=== PATIENT | male | born 1945 | race Caucasian/White ===

== ENCOUNTER 2020-06-03 11:13 | Inpatient (IN) | payer MEDICARE, OTHER, SELFPAY ==
[2020-06-03] VITALS (12 sets, daily range): BP systolic 83–152; BP diastolic 62–96; PULSE 72–95; RESP 14–23; TEMP 36.4–36.6; O2SAT 93–98
--- NOTE | 2020-06-03 11:24 | XRR_ITS ---
PROCEDURE INFORMATION: Exam: XR Chest, 1 View Exam date and time: 06/03/2020 11:40 AM Age: 75 years old Clinical indication: Syncope TECHNIQUE: Imaging protocol: XR of the chest Views: 1 view. COMPARISON: CR Chest 2 views* [id number] 03/24/2018 3:13 PM FINDINGS: Lungs: No lung consolidation or pulmonary edema. Pleural space: No pleural effusion or pneumothorax. Heart/Mediastinum: The cardiac silhouette is not enlarged. The mediastinal contours are normal. Bones/joints: Prior right rotator cuff surgery with a humeral anchor present. Soft tissues: There is a left epicardial fat pad. XR/XR chest 1V portable [id number] IMPRESSION: No acute abnormality.
--- NOTE | 2020-06-03 11:25 | ECG_ITS ---
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 Measurements Intervals [place] Rate: 80 P: 26 MI: 188 QRS: -36 QRSD: 153 T: 20 QT: 418 QTc: 485 Interpretive Statements SINUS RHYTHM RIGHT BUNDLE BRANCH BLOCK [120+ ms QRS DURATION, UPRIGHT V1, 40+ ms S IN I/aVL/V4/V5/V6] INFERIOR MYOCARDIAL INFARCTION , PROBABLY OLD [40+ ms Q WAVE AND/OR ST/T ABNORMALITY IN II/aVF] No previous ECG available for comparison Electronically Signed On 06-03-2020 16:06:00 CDT by Todd Campos M.D. [id number]
--- NOTE | 2020-06-03 11:53 | CT_ITS ---
WS: [id number] CT ABDOMEN PELVIS TECHNIQUE: Contrast-enhanced CT of the abdomen and pelvis with coronal and sagittal reformatted image s. CLINICAL INFORMATION: Abdominal pain COMPARISON: CT 6 25,009 DLP: 1378.[address] scans at [facility] use at least one of these dose optimization techniques: automat ed exposure control; mA and/or kV adjustment per patient size (includes targeted exams where dose is matched to clinical indication); or iterative reconstruction. FINDINGS: Mild diffuse fatty infiltration of the liver. Portal vein and splenic vein are patent. Normal gallbla dder. Normal GE junction. Fatty atrophy of the pancreas. Lung bases are well aerated. Adrenal Glands are normal. Normal renal parenchymal enhancement. No hydronephrosis. Portal vein and s plenic vein are patent. Calcified slightly enlarged prostate measuring 5.1 CM with prominent seminal vesicles. Recommend andrea elation PSA. Incidental fat-containing left inguinal hernia. Postoperative changes in the sigmoid col on and descending colon. Extensive Diverticulosis. No evidence of acute diverticulitis. Appendix is n ormal. Moderate degenerative arthritis lumbar spine with endplate degenerative changes. Notified Salud Lee at 06/03/2020 1:[address]/CT abdomen pelvis w con* [id number] IMPRESSION: 1. Prior postoperative changes descending colon and sigmoid colon. Diverticulo sis. 2. No evidence of acute diverticulitis. 3. Bilateral renal cortical atrophy. No hydronephrosis. 4. Incidental fat-containing left inguinal hernia. 5. Prominent prostate measuring 5.1 CM. Recommend correlation PSA. 6. No other significant findings.
[2020-06-03 12:16] LABS: Basophils # 0.1 10^3/uL (0.0-0.1); Basophils % 0.6 %; Eosinophils # 0.2 10^3/uL (0.0-0.8); Eosinophils % 2.5 %; Hematocrit 37.4 % (42.0-52.0); Hemoglobin 12.1 g/dL (11.7-16.6); Lymphocytes # 0.9 10^3/uL (0.8-4.8); Lymphocytes % 9.7 %; Mean Corpuscular HGB Conc 32.4 g/dL (30.0-36.0); Mean Corpuscular Hemoglobin 29.5 pg (28.0-34.0); Mean Corpuscular Volume 91.2 fL (80-94); Mean Platelet Volume 9.7 fL (7.4-10.4); Monocytes # 0.4 10^3/uL (0.2-0.9); Monocytes % 4.4 %; Neutrophils % 82.5 %; Nucleated Red Blood Cells % 0 %; Platelet Count 247 10^3/cmm (130-400); Red Cell Distribution Width 12.8 % (12.1-15.1); White Blood Count 8.7 10^3/uL (4.0-10.0)
[2020-06-03] MEDS: sodium chloride 0.9% 1,000 ML 100 ML IV (12:20)
[2020-06-03] MEDS: pantoprazole 40 mg SDV 80 MG IVP (12:20)
[2020-06-03 12:28] LABS: INR 0.97 (0.8-1.2); Partial Thromboplastin Time 25.4 SECONDS (23.9-36.7)
[2020-06-03 12:36] LABS: Alanine Aminotransferase 20 U/L (0-41); Albumin Level 4.6 g/dL (3.5-5.2); Alkaline Phosphatase 94 IU/L (40-130); Anion Gap 18.3 (5-19); Aspartate Amino Transferase 19 U/L (0-40); Blood Urea Nitrogen 27 mg/dL (8-23); Calcium 9.8 mg/dL (8.5-10.5); Carbon Dioxide 25 mmol/L (22-29); Chloride 96 mmol/L (98-107); Globulin 2.8 g/dL (1.3-4.6); Glucose 223 mg/dL (65-115); Magnesium 1.5 mg/dL (1.7-2.3); Osmolality Calculated 284 mOsm/kg (285-295); Potassium 4.3 mmol/L (3.5-5.1); Sodium 135 mmol/L (136-145); Total Bilirubin 0.4 mg/dL (0.15-1.2); Total Protein 7.4 g/dL (6.6-8.7)
[2020-06-03 12:38] LABS: Troponin(5th) Baseline 17 ng/L (0-15)
[2020-06-03] MEDS: iodixanol 320 mg/mL 100mL Btl IV (13:01)
--- NOTE | 2020-06-03 13:16 | ED_ITS ---
HPI - Syncope General: Chief Complaint: Syncope Stated Complaint: SYNCOPE/ BLOOD IN STOOL Time Seen by Provider: 06/03/20 11:24 Source: patient Mode of arrival: ambulatory Limitations: no limitations History of Present Illness: HPI narrative: Dhiraj is a 75-year-old male who comes in after a syncopal spell at home. Patient states he was on the commode having a bowel movement and felt a strange sensation and noticed blood in the toilet. He then had a syncopal spell after he felt lightheaded and dizzy. He denied any preceding chest pain or shortness of breath. He denies any abdominal pain at any time. He denies denies any hematic emesis or melena. The blood was bright red in nature. Patient denies any fevers or chills. Patient states he has had syncopal spells in the past but never associated with blood in his stool. Currently he feels somewhat lightheaded and dizzy but otherwise denies any complaints. Patient denies being on any blood thinners other than aspirin. Associated symptoms: Deny abdominal pain, chest pain, fever(s), headache(s), lightheadedness, nausea or vertigo Review of Systems Const: Denies: fever(s), chills, body aches, fatigue, malaise or diaphoresis Eyes: Denies: change in vision, blurry vision, blind spots, photophobia, eye discharge or eye redness ENMT: Denies: throat pain, odynophagia, hoarseness, swelling of lips/tongue, oral sores, ear or mastoid pain, ear discharge, change in hearing or nasal discharge Card: Reports: syncope; Denies: chest pain, palpitations, irregular heart rhythm, edema, lightheadedness, pre-syncope, dyspnea on exertion or orthopnea Resp: Denies: dyspnea, productive cough, non-productive cough, wheezing, hemoptysis or chest congestion GI: Reports: hematochezia; Denies: abdominal pain, nausea, vomiting, hematemesis, coffee ground emesis, heartburn, diarrhea, constipation, GI cramping or melena : Denies: flank pain, dysuria, urinary frequency, urinary urgency or hematuria Musc: Denies: neck pain, back pain, extremity pain, extremity swelling, joint pain, joint swelling, joint redness, joint warmth or joint stiffness Skin/Breast: Denies: rash, pruritus, erythema, skin tenderness or jaundice Neuro: Denies: headache(s), numbness in extremities, weakness in extremities, sensory changes, lack of coordination, difficulty walking, dizziness, vertigo, confusion, Slurred speech present or seizure-like activity Dedrick/Lymph: Denies: easy bruising, easy bleeding, petechiae, purpura or enlarged lymph nodes All/Imm: Denies: urticaria, throat swelling, tongue swelling, facial swelling or acute wheezing PFSH ED PFSH: Medical History Anemia, deficiency CA of prostate follows with Dr Brown Cancer of colon Chronic kidney disease, stage 2 (mild) Depression Dyslipidemia Fatty tumor Gastro-esophageal reflux disease without esophagitis History of esophageal dilatation Lung nodule right Type 2 diabetes mellitus without complications Surgical History History of colon resection (~1993) History of repair of right rotator cuff Hx of hernia repair Hx of removal of neck cyst Family History Father Diabetes CAD (coronary artery disease) Hypertension Social History Smoking and tobacco status: never smoked Alcohol intake: never Lives independently: Yes Household members: spouse Marital status: Number of children: 2 Number of grandchildren: 3 Current occupational status: retired Current gender identity: Male Physical Exam Const: COMMON NORMALS: no acute distress, patient oriented x3, no limitations, healthy appearing and well nourished GENERAL APPEARANCE: cooperative, well kempt and well developed HENMT: COMMON NORMALS: normocephalic, atraumatic, external ears normal, EAC's normal and Normal external nose present HEAD & SCALP: normal to inspection, normocephalic and atraumatic FACE & SINUS: normal facial exam and face symmetric NOSE: Normal external nose present and Normal nares present EXTERNAL EAR: Yes external ears normal EXTERNAL AUDITORY CANAL: EAC's normal MOUTH: Normal oral and palatal mucosa present, lip normal and tongue normal Eye: COMMON NORMALS: Equal, round and reactive pupils present and conjunctivae normal GENERAL EYE: appearance normal, both eyes and all related structures ALIGNMENT: Yes alignment normal PERIORBITAL: periorbital findings normal EYELID: eyelids normal CONJUNCTIVA: Yes conjunctivae normal SCLERA: sclerae normal PUPIL: Yes Equal, round and reactive pupils present Neck/C-Spine: COMMON NORMALS: full ROM, no lymphadenopathy, supple, no meningeal signs and no JVD GENERAL: Yes normal visual inspection and Yes trachea midline Chest: COMMONS NORMALS: normal inspection of the chest and normal palpation of entire chest wall Resp: COMMON NORMALS: normal respiratory effort, No retractions and No use of accessory muscles EFFORT & INSPECTION: Yes able to speak in complete sentences and Yes symmetric chest movement AUSCULTATION: no crackles, no rales, no rhonchi and no wheezes Cardio: COMMON NORMALS: no JVD, regular rate, regular rhythm, S1 normal heart sound present and S2 normal heart sound present RATE: regular rate RHYTHM: regular rhythm HEART SOUNDS: S1 normal heart sound present, S2 normal heart sound present, no click, no gallops, no murmurs, no rubs and abnormal split S2 GI: COMMON NORMALS: Soft to palpation and No hepatosplenomegaly present PALPATION: Yes Soft to palpation, No Tenderness to palpation present (GI), No Guarding due to palpation present (GI), No Rigid due to palpation, Yes No hepato splenomegaly present, No Hernia present, No Palpable mass present and No Pulsatile mass present : COMMON NORMALS: Yes no CVA tenderness BLADDER/KIDNEY EXAM: Yes no CVA tenderness Back/Pelvis: COMMON NORMALS: no CVA tenderness, thoracic and lumbar spine normal to inspection, no thoracic nor lumbar tenderness and thoraco-lumbar ROM normal Extremity: COMMON NORMALS: normal to inspection, full ROM, capillary refill normal, no joint enlargement, no clubbing, cyanosis or edema and no calf t enderness Neuro: COMMON NORMALS: patient oriented x3, CN's II-XII intact bilaterally, moves all extremities, no focal motor deficits and no sensory deficits noted MENINGEAL SIGNS: Yes no meningeal signs SPEECH: speech normal Psych: COMMON NORMALS: mental status grossly normal, Normal thought process present, cooperative, normal affect, speech normal and activity/motor behavior normal APPEARANCE: Yes well kempt SPEECH: Yes normal speech THOUGHT PROCESS: Normal thought process present Skin: COMMON NORMALS: no rashes or lesions noted, turgor normal, no jaundice, no petechiae and no mottling GENERAL SKIN EXAM: no rashes or lesions noted and turgor normal Course ED course: Orthostatic vital signs -positive for dropping of systolic blood pressure in standing position. Vital Signs: Vital signs: Vital Signs Temperature 97.7 F 06/03/20 11:18 Pulse Rate 83 06/03/20 12:04 Respiratory Rate 16 06/03/20 12:04 Blood Pressure 114/80 06/03/20 12:04 Pulse Oximetry 95 06/03/20 12:04 MDM - Syncope MDM Narrative: Medical decision making narrative: Patient comes in with a large amount of bright red blood per rectum. He had a syncopal spell with this as well. I reviewed the case in full with Dr. Valerio he is agreeable to admission. Right now the patient's vital signs are stable but he is orthostatic. We will make certain he has 2 large-bore IVs and get him admitted to the ICU. Lab Data: Attestation: I reviewed the patient's lab results. Labs: Lab Results 06/03/20 06/03/20 06/03/20 Range/Units 11:59 11:59 11:59 WBC 8.7 (4.0-10.0) 10^3/ uL RBC 4.10 (4.1-5.3) 10^6/u L Hgb 12.1 (11.7-16.6) g/dL Hct 37.4 L (42.0-52.0) % MCV 91.2 (80-94) fL MCH 29.5 (28.0-34.0) pg MCHC 32.4 (30.0-36.0) g/dL RDW 12.8 (12.1-15.1) % Plt Count 247 (130-400) 10^3/c mm MPV 9.7 (7.4-10.4) fL Neut % (Auto) 82.5 % Lymph % (Auto) 9.7 % Josephine % (Auto) 4.4 % Eos % (Auto) 2.5 % Baso % (Auto) 0.6 % Neut # (Auto) 7.20 (1.8-7.7) 10^3/u L Lymph # (Auto) 0.9 (0.8-4.8) 10^3/u L Josephine # (Auto) 0.4 (0.2-0.9) 10^3/u L Eos # (Auto) 0.2 (0.0-0.8) 10^3/u L Baso # (Auto) 0.1 (0.0-0.1) 10^3/u L Nucleated RBC % (a uto) 0 % Nucleated RBCs # 0.0 /100WBC PT (10.5-13.3) SECO NDS INR (0.8-1.2) APTT (23.9-36.7) SECO NDS Sodium 135 L (136-145) mmol/L Potassium 4.3 (3.5-5.1) mmol/L Chloride 96 L (98-107) mmol/L Carbon Dioxide 25 (22-29) mmol/L Anion Gap 18.3 (5-19) BUN 27 H (8-23) mg/dL Creatinine 1.4 H (0.7-1.2) mg/dL GFR Calculation Not Reportable Glucose 223 H (65-115) mg/dL Calculated Osmolal ity 284 L (285-295) mOsm/k g Calcium 9.8 (8.5-10.5) mg/dL Magnesium 1.5 L (1.7-2.3) mg/dL Total Bilirubin 0.4 (0.15-1.2) mg/dL AST 19 (0-40) U/L ALT 20 (0-41) U/L Alkaline Phosphata se 94 (40-130) IU/L Troponin T Baselin e 17 H (0-15) ng/L Total Protein 7.4 (6.6-8.7) g/dL Albumin 4.6 (3.5-5.2) g/dL Globulin 2.8 (1.3-4.6) g/dL Blood Type Rho(D) Type Antibody Screen Crossmatch 06/03/20 06/03/20 Range/Units 11:59 11:59 WBC (4.0-10.0) 10^3/ uL RBC (4.1-5.3) 10^6/u L Hgb (11.7-16.6) g/dL Hct (42.0-52.0) % MCV (80-94) fL MCH (28.0-34.0) pg MCHC (30.0-36.0) g/dL RDW (12.1-15.1) % Plt Count (130-400) 10^3/c mm MPV (7.4-10.4) fL Neut % (Auto) % Lymph % (Auto) % Josephine % (Auto) % Eos % (Auto) % Baso % (Auto) % Neut # (Auto) (1.8-7.7) 10^3/u L Lymph # (Auto) (0.8-4.8) 10^3/u L Josephine # (Auto) (0.2-0.9) 10^3/u L Eos # (Auto) (0.0-0.8) 10^3/u L Baso # (Auto) (0.0-0.1) 10^3/u L Nucleated RBC % (a uto) % Nucleated RBCs # /100WBC PT 13.10 (10.5-13.3) SECO NDS INR 0.97 (0.8-1.2) APTT 25.4 (23.9-36.7) SECO NDS Sodium (136-145) mmol/L Potassium (3.5-5.1) mmol/L Chloride (98-107) mmol/L Carbon Dioxide (22-29) mmol/L Anion Gap (5-19) BUN (8-23) mg/dL Creatinine (0.7-1.2) mg/dL GFR Calculation Glucose (65-115) mg/dL Calculated Osmolal ity (285-295) mOsm/k g Calcium (8.5-10.5) mg/dL Magnesium (1.7-2.3) mg/dL Total Bilirubin (0.15-1.2) mg/dL AST (0-40) U/L ALT (0-41) U/L Alkaline Phosphata se (40-130) IU/L Troponin T Baselin e (0-15) ng/L Total Protein (6.6-8.7) g/dL Albumin (3.5-5.2) g/dL Globulin (1.3-4.6) g/dL Blood Type B Positive Rho(D) Type Positive Antibody Screen Negative Crossmatch See Detail Imaging Data^: CXR: My impression: No acute cardiopulmonary findings. EKG Data^: EKG 1: Attestation: I personally reviewed and interpreted this EKG as follows: EKG interpretation date: 06/03/20 EKG interpretation time: 11:43 Interpretation: Normal sinus rhythm at 80 beats a minute, right bundle branch block, no acute ST-T wave changes. Q waves inferiorly. EKG 2: Attestation: I personally reviewed and interpreted this EKG as follows: EKG interpretation date: 06/03/20 EKG interpretation time: 13:33 Interpretation: Normal sinus rhythm at 84 beats a minute, right bundle branch block, Q waves inferiorly. Discharge Plan Discharge Patient Disposition: Admitted As Inpatient Clinical Impression: Acute GI bleeding Condition: Stable Prescriptions: No Action hydrochlorothiazide 25 mg tablet 25 mg PO DAILY RF: 0 tamsulosin 0.4 mg capsule 0.4 mg PO DAILY RF: 0 cetirizine [Zyrtec] 10 mg tablet 10 mg PO DAILY RF: 0 glipizide 5 mg tablet 5 mg PO BID RF: 0 potassium chloride 20 mEq tablet extended release 20 meq PO BID RF: 0 metformin 500 mg tablet 1,000 mg PO BID RF: 0 paroxetine HCl 20 mg tablet 20 mg PO BID RF: 0 atorvastatin [Lipitor] 80 mg tablet 80 mg PO EVERY OTHER DAY RF: 0 clonidine HCl 0.1 mg tablet 0.1 mg PO BID PRN (Reason: Blood Pressure) RF: 0 Victoza 2-Rigo 0.6 mg/0.1 mL (18 mg/3 mL) pen injector 0.6 mg SUBCUT DAILY RF: 0 pantoprazole [Protonix] 40 mg tablet,delayed release (DR/EC) 40 mg PO DAILY RF: 0 omega-3 fatty acids 1,000 mg capsule 2,000 mg PO BID RF: 0 aspirin 325 mg tablet 325 mg PO DAILY RF: 0 cholecalciferol (vitamin D3) 1,000 unit capsule 1,000 unit PO DAILY RF: 0 carvedilol 12.5 mg tablet 6.25 mg PO BID RF: 0 losartan 100 mg tablet 150 mg PO DIRECTED Qty: 135 RF: 3 cyclobenzaprine 10 mg Tablet 10 mg PO TID PRN (Reason: Muscle Pain) RF: 0 Referrals: Mary Samson APN [Primary Care Provider] - Coding Level of Care Code ED Retail Zone Specialist for Chg Fwd Exam Comprehensive
--- NOTE | 2020-06-03 13:25 | ECG_ITS ---
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 Measurements Intervals [place] Rate: 84 P: -3 FL: 168 QRS: -37 QRSD: 153 T: 1 QT: 419 QTc: 496 Interpretive Statements SINUS RHYTHM WITH OCCASIONAL VENTRICULAR PREMATURE COMPLEXES RIGHT BUNDLE BRANCH BLOCK [120+ ms QRS DURATION, UPRIGHT V1, 40+ ms S IN I/aVL/V4/V5/V6] INFERIOR MYOCARDIAL INFARCTION , PROBABLY OLD [40+ ms Q WAVE AND/OR ST/T ABNORMALITY IN II/aVF] Compared to ECG 06/03/2020 11:43:33 Ventricular premature complex(es) now present Myocardial infarct finding still present Electronically Signed On 06-03-2020 16:19:52 CDT by Todd Campos M.D. [id number]
[2020-06-03] MEDS: magnesium sulfate premix 2 GM/50 ML PIGGYBACK IV (13:43)
[2020-06-03 14:25] LABS: Troponin 5 2HR 14.19 ng/L (0-15)
--- NOTE | 2020-06-03 14:26 | PC.NURSE ---
report given to mita thorne rn in icu.
--- NOTE | 2020-06-03 14:29 | P.CONIM_ITS ---
Providers/Reason For Consult Consulting Physican/Specialty*: General Surgery Mohan Lucero MD Reason for Consult*: Hematochezia with syncope. Attending Physician: Boom Deluca MD Primary Care Provider: Mary Samson APN History of Present Illness History of Present Illness Dhiraj Pathak is a 75 year old male admitted today for an episode of hematochezia year associated with syncope earlier today. The patient says that he actually had some loose stool overnight that had a little bit of bright red blood in it, and both of these things are unusual for him. He then sat down to have a bowel movement around 9:30 AM and passed a significant amount of bright red blood and this was associated with a syncopal episode. He denies any history of GI bleeding. He has no known history of peptic ulcer disease. He has not been having any abdominal pain or cramping. He had a colonoscopy in [place], [place] 2 years ago and says only some small polyps were removed; he was told to consider another colonoscopy in 5 years. He is known to have diverticulosis. The patient takes a full size aspirin a day but does not take any other NSAIDs on a regular basis. He is not on any formal anticoagulation otherwise. Review of Systems General: Reports: 10 or more systems reviewed and unremarkable except in HPI and below Const: Denies: fever(s) GI: Reports: hematochezia; Denies: abdominal pain or melena Meds/Allergies Home Medications and Allergies Home Medications Medication Instructions Recorded Confirmed Last Taken Type aspirin 325 mg tablet 325 mg PO DAILY tab 11/03/19 06/03/20 06/02/20 History atorvastatin 80 mg tablet 80 mg PO EVERY OTHER DAY tab 11/03/19 06/03/20 06/02/20 History cholecalciferol (vitamin D3) 25 1,000 unit PO DAILY 11/03/19 06/03/20 06/02/20 History mcg (1,000 unit) capsule clonidine HCl 0.1 mg tablet 0.1 mg PO BID PRN 11/03/19 06/03/20 Unknown History glipizide 5 mg tablet 5 mg PO BID 11/03/19 06/03/20 06/02/20 History liraglutide 0.6 mg/0.1 mL (18 mg/3 0.6 mg SUBCUT DAILY 11/03/19 06/03/20 06/02/20 History mL) subcutaneous pen injector metformin 500 mg tablet 1,000 mg PO BID tab 11/03/19 06/03/20 06/02/20 History omega-3 fatty acids 1,000 mg 2,000 mg PO BID cap 11/03/19 06/03/20 06/02/20 History capsule pantoprazole 40 mg tablet,delayed 40 mg PO DAILY 11/03/19 06/03/20 06/02/20 History release paroxetine HCl 20 mg tablet 20 mg PO BID tab 11/03/19 06/03/20 06/02/20 History potassium chloride 20 mEq 20 meq PO BID 11/03/19 06/03/20 06/02/20 History tablet,extended release carvedilol 12.5 mg tablet 6.25 mg PO BID tab 03/29/20 06/03/20 06/02/20 History cetirizine 10 mg tablet 10 mg PO DAILY tab 03/29/20 06/03/20 06/02/20 History hydrochlorothiazide 25 mg tablet 25 mg PO DAILY 03/29/20 06/03/20 06/02/20 History tamsulosin 0.4 mg capsule 0.4 mg PO DAILY 03/29/20 06/03/20 06/02/20 History losartan 100 mg tablet 150 mg PO DIRECTED #135 tab 05/13/20 06/03/20 06/02/20 Rx cyclobenzaprine 10 mg PO TID PRN 06/03/20 06/03/20 Unknown History Allergies Allergy/AdvReac Type Severity Reaction Status Date / Time oxycodone [From OxyContin] AdvReac itching Verified 06/03/20 14:37 Current Medications Current Medications Generic Name Dose Route Start Last Admin Trade Name Freq PRN Reason Stop Dose Admin Sodium Chloride 1,000 mls @ 100 mls/hr 06/03/20 11:30 06/03/20 12:20 Sodium Chloride 0.9% IV 100 mls/hr .Q10H QUINN Administration PFSH Acute PFSH: Medical History (Updated 06/03/20 @ 14:36 by Mohna Lucero MD) Anemia, deficiency CA of prostate follows with Dr Brown Chronic kidney disease, stage 2 (mild) Depression Dyslipidemia Fatty tumor Gastro-esophageal reflux disease without esophagitis History of colon polyps History of esophageal dilatation Lung nodule right Type 2 diabetes mellitus without complications Surgical History (Updated 06/03/20 @ 14:36 by Mohan Lucero MD) History of colon resection (~1993) Precancerous polyp, unable to be removed endoscopically History of lipoma Left wrist History of repair of right rotator cuff Hx of hernia repair Right inguinal Hx of removal of neck cyst Right Family History (Updated 06/03/20 @ 14:38 by Mohan Lucero MD) Father Diabetes CAD (coronary artery disease) Hypertension Colon polyps Social History Smoking and tobacco status: never smoked Alcohol intake: never Lives independently: Yes Household members: spouse Marital status: Number of children: 2 Number of grandchildren: 3 Current occupational status: retired Current gender identity: Male Vitals/I&O/Wt Last Vital Signs Temp 97.7 F 06/03/20 11:18 Pulse 95 06/03/20 13:30 Resp 16 06/03/20 13:30 BP 152/96 06/03/20 13:30 Pulse Ox 94 06/03/20 13:30 Physical Exam Narrative: EXAM NARRATIVE: The patient was encountered in his room in the emergency department. He does not appear to be in any acute distress. The pupils are equal. No carotid bruits are heard. The lungs are clear anteriorly. The heart is regular. The abdomen is moderately obese but is soft. Bowel sounds are present. The patient does have some mild rectus diastasis. No obvious masses are palpated and the abdomen seems to be completely nontender. The extremities reveal no edema. Neurologically the patient is grossly intact Data Imaging^: CT Abd/Pel: Radiologist's impression: CT abdomen/pelvis 06/03/2020 iMPRESSION: 1. Prior postoperative changes descending colon and sigmoid colon. Diverticulosis. 2. No evidence of acute diverticulitis. 3. Bilateral renal cortical atrophy. No hydronephrosis. 4. Incidental fat-containing left inguinal hernia. 5. Prominent prostate measuring 5.1 CM. Recommend correlation PSA. 6. No other significant findings. A&P Assessment and plan (1) Hematochezia: This has never happened to the patient before. We discussed possibilities of diverticular bleeding, hemorrhoidal disease, etc. Given the fact that he just had a colonoscopy 2 years ago, I think it would be very unlikely that he would be dealing with some variant of neoplasia. As such, I do not know that another colonoscopy is going to be a necessity unless he has continuing problems. Status: Acute Consult Attestations Medical Necessity Statement: See admitting service's notation. Coding Level of Care Code Acute Pigment Making Supervisor for Candie Lee Diagnoses Hematochezia K92.1
[2020-06-03 14:31] LABS: Troponin 5 2HR Delta -2.81 ABS# (0-10)
--- NOTE | 2020-06-03 16:18 | P.HP_ITS ---
Providers/Chief Complaint Admitting Physician: Boom Deluca MD Primary Care Provider: Mary Samson APN Chief Complaint: SYNCOPE/ BLOOD IN STOOL History of Present Illness Dhiraj Pathak is a 75 year old male presents to emerge department with syncopal episode and melanotic stool along with bright red blood stool last night. He has been quite orthostatic in the emergency department. Reports that many years ago he had somewhat similar episode and it was due to ruptured hemorrhoid. He is sure that he saw a mixture of black stool and bright red blood. Patient denies nausea or abdominal pain. Patient reports that for the last couple of weeks he has been having left posterior shoulder/trapezius muscle spasm and last week he was prescribed ibuprofen and muscle relaxant. Patient also reports that for many years he has been taking aspirin, full dose. Reports that for the last 1 year he has been having heartburns . Because there was a concern for significant upper GI bleed causing him orthostatic and syncopal episode patient was admitted to ICU for close mo nitoring and treatment despite hemoglobin being 12.1 Review of Systems Const: Denies: fever(s) or chills Eyes: Denies: change in vision ENMT: Denies: throat pain or change in hearing Card: Denies: chest pain, edema or lightheadedness Resp: Denies: dyspnea or productive cough GI: Reports: hematochezia and melena; Denies: abdominal pain, nausea, vomiting, dysphagia, diarrhea or constipation Musc: Reports: joint pain; Denies: joint swelling (Posterior shoulder/trapezius muscle radiating to his neck head behind ear on the left) Skin/Breast: Denies: rash or erythema Neuro: Denies: headache(s) or weakness in extremities Psych: Denies: depression or suicidal ideation Endo: Denies: excessive sweating [place]/Lymph: Denies: easy bleeding or tender lymph nodes All/Imm: Denies: throat swelling Medications/Allergies Home Medications Medication Instructions Recorded Confirmed Last Taken Type aspirin 325 mg tablet 325 mg PO DAILY tab 11/03/19 06/03/20 06/02/20 History atorvastatin 80 mg tablet 80 mg PO EVERY OTHER DAY tab 11/03/19 06/03/20 06/02/20 History cholecalciferol (vitamin D3) 25 1,000 unit PO DAILY 11/03/19 06/03/20 06/02/20 History mcg (1,000 unit) capsule clonidine HCl 0.1 mg tablet 0.1 mg PO BID PRN 11/03/19 06/03/20 Unknown History glipizide 5 mg tablet 5 mg PO BID 11/03/19 06/03/20 06/02/20 History liraglutide 0.6 mg/0.1 mL (18 mg/3 0.6 mg SUBCUT DAILY 11/03/19 06/03/20 0 History mL) subcutaneous pen injector metformin 500 mg tablet 1,000 mg PO BID tab 11/03/19 06/03/20 06/02/20 History omega-3 fatty acids 1,000 mg 2,000 mg PO BID cap 11/03/19 06/03/20 06/02/20 History capsule pantoprazole 40 mg tablet,delayed 40 mg PO DAILY 11/03/19 06/03/20 06/02/20 History release paroxetine HCl 20 mg tablet 20 mg PO BID tab 11/03/19 06/03/20 06/02/20 History potassium chloride 20 mEq 20 meq PO BID 11/03/19 06/03/20 06/02/20 History tablet,extended release carvedilol 12.5 mg tablet 6.25 mg PO BID tab 03/29/20 06/03/20 06/02/20 History cetirizine 10 mg tablet 10 mg PO DAILY tab 03/29/20 06/03/20 06/02/20 History hydrochlorothiazide 25 mg tablet 25 mg PO DAILY 03/29/20 06/03/20 06/02/20 History tamsulosin 0.4 mg capsule 0.4 mg PO DAILY 03/29/20 06/03/20 06/02/20 History losartan 100 mg tablet 150 mg PO DIRECTED #135 tab 05/13/20 06/03/20 06/02/20 Rx cyclobenzaprine 10 mg PO TID PRN 06/03/20 06/03/20 Unknown History Allergies Allergy/AdvReac Type Severity Reaction Status Date / Time oxycodone [From OxyContin] AdvReac itching Verified 06/03/20 14:37 PFSH Acute PFSH: Medical History (Updated 06/03/20 @ 16:35 by Boom Deluca MD) Anemia, deficiency CA of prostate follows with Dr Brown Chronic kidney disease, stage 2 (mild) Depression Dyslipidemia Fatty tumor Gastro-esophageal reflux disease without esophagitis GERD (gastroesophageal reflux disease) History of colon polyps History of esophageal dilatation Lung nodule right Tension headache Type 2 diabetes mellitus without complications Surgical History (Updated 06/03/20 @ 14:36 by Mohan Lucero MD) History of colon resection (~1993) Precancerous polyp, unable to be removed endoscopically History of lipoma Left wrist History of repair of right rotator cuff Hx of hernia repair Right inguinal Hx of removal of neck cyst Right Family History (Updated 06/03/20 @ 14:38 by Mohan Lucero MD) Father Diabetes CAD (coronary artery disease) Hypertension Colon polyps Social History Smoking and tobacco status: never smoked Alcohol intake: never Lives independently: Yes Household members: spouse Marital status: Number of children: 2 Number of grandchildren: 3 Current occupational status: retired Current gender identity: Male Vitals/I&O/Wt Last Vital Signs Temp 97.7 F 06/03/20 11:18 Pulse 88 06/03/20 14:30 Resp 21 H 06/03/20 14:30 BP 125/81 06/03/20 14:30 Pulse Ox 94 06/03/20 14:30 06/03/20 06/03/20 06/03/20 06:59 14:59 22:59 Intake Total 50 / 50 Balance 50 / 50 Physical Exam Const: COMMON NORMALS: no acute distress, patient oriented x3 and alert HENMT: COMMON NORMALS: normocephalic and atraumatic HEAD & SCALP: normocephalic and atraumatic Eye: COMMON NORMALS: EOMs intact bilaterally, conjunctivae normal and no scleral icterus CONJUNCTIVA: Yes conjunctivae normal Neck/C-Spine: COMMON NORMALS: no lymphadenopathy and no meningeal signs Lymph: LYMPHATIC: no lymphadenopathy noted Chest: COMMONS NORMALS: normal palpation of entire chest wall Resp: COMMON NORMALS: No use of accessory muscles and clear to auscultation bilaterally AUSCULTATION: clear to auscultation bilaterally Cardio: COMMON NORMALS: regular rate, regular rhythm and No murmurs present (Cardio) RATE: regular rate RHYTHM: regular rhythm OTHER: No lower extremity edema GI: COMMON NORMALS: Soft to palpation and non-tender PALPATION: Yes Soft to palpation RECTAL EXAM: Yes deferred : COMMON NORMALS: Yes no CVA tenderness BLADDER/KIDNEY EXAM: Yes no CVA tenderness Back/Pelvis: COMMON NORMALS: no CVA tenderness and thoracic and lumbar spine normal to inspection Extremity: COMMON NORMALS: normal to inspection and capillary refill normal Neuro: COMMON NORMALS: patient oriented x3 and no focal motor deficits SENSORIUM/ORIENTATION: Yes alert MENINGEAL SIGNS: Yes no meningeal signs Psych: COMMON NORMALS: mental status grossly normal, Normal thought process p resent and cooperative THOUGHT PROCESS: Normal thought process present Skin: COMMON NORMALS: no rashes or lesions noted GENERAL SKIN EXAM: no rashes or lesions noted Data : 06/03/20 11:59 06/03/20 11:59 A&P Assessment and plan (1) Acute GI bleeding: Suspected to be upper GI bleed given history of GERD and aspirin/ibuprofen use recently Status: Acute (2) Dehydration with hyponatremia: Status: Acute (3) Diabetes mellitus type 2 in obese: Status: Acute (4) Episode of syncope: Orthostatic due to GI bleed. Status: Acute (5) GERD (gastroesophageal reflux disease): With highly suspected NSAID induced gastritis. Status: Acute (6) Tension headache: For the last 1 to 2 weeks. Status: Acute Additional A&P Information Possible acute kidney injury, prerenal. PLAN: Continue high-dose PPI. Avoid any NSAIDs/steroids. Tylenol for pain control. IV hydration with normal saline. Given highly suspected cause of bleeding due to NSAIDs I do not think any further evaluation with endoscopy currently needed. Patient should be able to respond rather quickly to high-dose PPI but should his symptoms recur then further evaluation with EGD/colonoscopy can be considered. Frequent H&H check at least for a day and will transfuse if hemoglobin drops below 7. Clear liquid diet for now. Sliding scale insulin. Restart some of the blood pressure medications including Flomax. Attestations Medical Necessity Statement*: Patient with what appears to be upper GI bleed requires close ICU monitoring and treatment. I expect patient will require more than 2 midnights. 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
--- NOTE | 2020-06-03 17:25 | ECG_ITS ---
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 Measurements Intervals [place] Rate: 85 P: -12 VA: 164 QRS: -29 QRSD: 162 T: 7 QT: 419 QTc: 501 Interpretive Statements SINUS RHYTHM RIGHT BUNDLE BRANCH BLOCK [120+ ms QRS DURATION, UPRIGHT V1, 40+ ms S IN I/aVL/V4/V5/V6] INFERIOR MYOCARDIAL INFARCTION [40+ ms Q WAVE AND/OR ST/T ABNORMALITY IN II/aVF], PROBABLY OLD WARNING: DATA QUALITY MAY AFFECT INTERPRETATION Compared to ECG 06/03/2020 13:33:21 Ventricular premature complex(es) no longer present Myocardial infarct finding still present Electronically Signed On 06-04-2020 7:04:32 CDT by Nolvia Salgado M.D. [id number]
[2020-06-03 17:30] LABS: Glucose Point of Care 118 mg/dL (70-110)
[2020-06-03 17:48] LABS: Hematocrit 32.7 % (42.0-52.0); Hemoglobin 10.5 g/dL (11.7-16.6)
[2020-06-03 18:09] LABS: Troponin 5 6HR 15.72 ng/L (0-15)
[2020-06-03 18:10] LABS: Troponin 5 6HR Delta -1.28 ng/L (0-12)
[2020-06-03] MEDS: carvedilol 6.25 mg Tablet PO (19:19)
[2020-06-03] MEDS: PARoxetine 20 mg Tablet PO (19:19)
[2020-06-03] MEDS: pantoprazole 40 mg SDV IVP (23:19)
[2020-06-04] VITALS (20 sets, daily range): BP systolic 123–174; BP diastolic 59–107; PULSE 69–85; RESP 14–28; TEMP 36.4–36.8; O2SAT 91–97
[2020-06-04] MEDS: sodium chloride 0.9% 1,000 ML 75 ML IV (00:56)
[2020-06-04 04:24] LABS: Basophils % 0.4 %; Eosinophils # 0.3 10^3/uL (0.0-0.8); Eosinophils % 3.7 %; Hematocrit 28.9 % (42.0-52.0); Hemoglobin 9.4 g/dL (11.7-16.6); Lymphocytes # 1.1 10^3/uL (0.8-4.8); Lymphocytes % 16.3 %; Mean Corpuscular HGB Conc 32.5 g/dL (30.0-36.0); Mean Corpuscular Hemoglobin 29.8 pg (28.0-34.0); Mean Corpuscular Volume 91.7 fL (80-94); Mean Platelet Volume 10.5 fL (7.4-10.4); Monocytes # 0.5 10^3/uL (0.2-0.9); Monocytes % 7.8 %; Neutrophils # 4.79 10^3/uL (1.8-7.7); Neutrophils % 71.5 %; Nucleated Red Blood Cells % 0 %; Platelet Count 197 10^3/cmm (130-400); Red Blood Count 3.15 10^6/uL (4.1-5.3); White Blood Count 6.7 10^3/uL (4.0-10.0)
[2020-06-04 05:12] LABS: Blood Urea Nitrogen 25 mg/dL (8-23); Calcium 8.3 mg/dL (8.5-10.5); Carbon Dioxide 26 mmol/L (22-29); Chloride 101 mmol/L (98-107); Glucose 128 mg/dL (65-115); Osmolality Calculated 284 mOsm/kg (285-295); Sodium 138 mmol/L (136-145)
[2020-06-04 05:13] LABS: Anion Gap 14.6 (5-19); Potassium 3.6 mmol/L (3.5-5.1)
[2020-06-04 05:52] LABS: Slide Review Slide Review Perform
[2020-06-04 07:21] LABS: Glucose Point of Care 152 mg/dL (70-110)
--- NOTE | 2020-06-04 07:37 | P.PN_ITS ---
Subjective Subjective: Interval history: The patient says that he had a soft bowel movement during the night and apparently there was a little bit of bright red blood in it that nursing reported to him. His abdomen remains asymptomatic. Vitals/I&O/Wt Last Vital Signs Temp 97.6 F 06/04/20 04:15 Pulse 74 06/04/20 06:18 Resp 18 06/04/20 06:18 BP 146/76 06/04/20 06:18 Pulse Ox 94 06/04/20 06:18 06/03/20 06/04/20 06/04/20 22:59 06:59 14:59 Intake Total 480 / 530 Output Total 450 / 950 500 / 950 Balance 30 / -420 -500 / -420 Weight last 48 hrs Weight 213 lb 3 oz Weight 213 lb 4 oz Physical Exam Narrative: EXAM NARRATIVE: Abdomen remains soft and nontender. Data : 06/04/20 03:10 06/04/20 03:10 A&P Assessment and plan (1) Hematochezia: The patient's hemoglobin hopefully has stabilized. Again, I do not see an absolute necessity in repeating the patient's colonoscopy since it was just done 2 years ago, but remains an option. He does not have much interest in doing this, however. Continue conservative management. Status: Acute Attestations Medical Necessity Statement*: See admitting service's notation. 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
--- NOTE | 2020-06-04 08:22 | PC.NURSE ---
[pt c/o headache dr pederson here soma given early requesting to rest this am eyes covered and door closed
[2020-06-04] MEDS: PARoxetine 20 mg Tablet PO ×2 (08:32→16:50)
[2020-06-04] MEDS: carvedilol 6.25 mg Tablet PO ×2 (08:32→16:48)
[2020-06-04] MEDS: tamsulosin 0.4 mg Capsule PO (08:32)
--- NOTE | 2020-06-04 08:47 | PM.PN ---
Subjective Subjective: Interval history: Patient reports doing better but continues to have left-sided trapezius pain radiating to his neck and head this morning. He did not request as needed soma and pain medication yesterday. He had large melanotic bowel movement. His vitals are stable and hemoglobin is down to 9.4. Vitals/I&O/Wt Last Vital Signs Temp 97.6 F 06/04/20 04:15 Pulse 75 06/04/20 08:07 Resp 28 H 06/04/20 08:00 BP 174/104 06/04/20 08:00 Pulse Ox 93 06/04/20 08:07 06/03/20 06/04/20 06/04/20 22:59 06:59 14:59 Intake Total 480 / 530 100 / 100 Output Total 450 / 450 500 / 950 250 / 250 Balance 30 / 80 -500 / -420 -150 / -150 Weight last 48 hrs Weight 96.7 kg Weight 96.729 kg Physical Exam Const: COMMON NORMALS: no acute distress and patient oriented x3 Resp: COMMON NORMALS: normal respiratory effort and clear to auscultation bilaterally AUSCULTATION: clear to auscultation bilaterally Cardio: COMMON NORMALS: regular rate, regular rhythm and S2 normal heart sound present RATE: regular rate RHYTHM: regular rhythm HEART SOUNDS: S2 normal heart sound present OTHER: No lower extremity edema GI: COMMON NORMALS: Normal to inspection, nondistended, normoactive bowel sounds present, Soft to palpation and non-tender PALPATION: Yes Soft to palpation Neuro: COMMON NORMALS: patient oriented x3 and no focal motor deficits Data : 06/04/20 03:10 06/04/20 03:10 A&P Assessment and plan (1) Acute GI bleeding: Suspected to be upper GI bleed given history of GERD and aspirin/ibuprofen use recently Status: Acute (2) Dehydration with hyponatremia: Status: Acute (3) Diabetes mellitus type 2 in obese: Status: Acute (4) Episode of syncope: Orthostatic due to GI bleed. Status: Acute (5) GERD (gastroesophageal reflux disease): With highly suspected NSAID induced gastritis. Status: Acute (6) Tension headache: For the last 1 to 2 weeks. Status: Acute Additional A&P Information Possible acute kidney injury, prerenal. PLAN: Current monitoring and treatment and restart home losartan. Diet was advanced this morning. Transfer patient to medical [facility] and if continues to be stable we could likely dismiss patient home tomorrow. 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
--- NOTE | 2020-06-04 10:57 | PC.NURSE ---
head ache better at this time ... transfer to room 262 at this time
[2020-06-04] MEDS: atorvastatin 40 mg Tablet 80 MG PO (11:39)
[2020-06-04] MEDS: losartan 50 mg Tablet 100 MG PO ×2 (11:39→16:49)
[2020-06-04] MEDS: pantoprazole 40 mg SDV IVP (11:40)
[2020-06-04 12:09] LABS: Glucose Point of Care 254 mg/dL (70-110)
[2020-06-04 16:20] LABS: Glucose Point of Care 190 mg/dL (70-110)
[2020-06-04] MEDS: losartan 50 mg Tablet PO (17:51)
[2020-06-04 21:38] LABS: Glucose Point of Care 152 mg/dL (70-110)
[2020-06-05] VITALS: BP 151/83; PULSE 83; RESP 18; TEMP 36.9; O2SAT 96
[2020-06-05] MEDS: pantoprazole 40 mg SDV IVP ×2 (00:30→12:30)
[2020-06-05 04:00] VITALS: BP 136/81; PULSE 70; RESP 18; TEMP 36.4; O2SAT 92
--- NOTE | 2020-06-05 06:26 | PC.NURSE ---
SHIFT SUMMARY Had a good night without c/o. No BM's this shift. Voiding well per urinal
[2020-06-05 06:45] LABS: Glucose Point of Care 171 mg/dL (70-110)
[2020-06-05 07:25] VITALS: BP 171/92; PULSE 67; RESP 18; TEMP 36.6; O2SAT 94
[2020-06-05] MEDS: acetaminophen 500 mg Tablet 1000 MG PO (07:52)
[2020-06-05] MEDS: PARoxetine 20 mg Tablet PO (07:52)
[2020-06-05] MEDS: carvedilol 6.25 mg Tablet PO (07:52)
[2020-06-05] MEDS: tamsulosin 0.4 mg Capsule PO (07:52)
--- NOTE | 2020-06-05 08:03 | P.PN_ITS ---
Subjective Subjective: Interval history: The patient feels well today. He would like to try to go home if possible, but admits he still seeing a small amount of blood in his bowel movements at times. Vitals/I&O/Wt Last Vital Signs Temp 97.8 F 06/05/20 07:25 Pulse 67 06/05/20 07:25 Resp 18 06/05/20 07:25 BP 171/92 06/05/20 07:25 Pulse Ox 94 06/05/20 07:25 06/04/20 06/05/20 06/05/20 22:59 06:59 14:59 Intake Total 360 / 1860 200 / 1860 Output Total 1000 / 3000 1550 / 3000 300 / 300 Balance -640 / -1140 -1350 / -1140 -300 / -300 Weight last 48 hrs Weight 207 lb 8 oz Weight 213 lb 3 oz Weight 213 lb 4 oz Physical Exam Narrative: EXAM NARRATIVE: Abdomen remains soft and nontender. Data : 06/04/20 03:10 06/04/20 03:10 A&P Assessment and plan (1) Hematochezia: I do not see an absolute necessity in repeating the patient's colonoscopy since it was just done 2 years ago, but remains an option. He does not have much interest in doing this, however. Continue conservative management. Lab results above from yesterday morning. Recheck laboratory studies this morning. Status: Acute Attestations Medical Necessity Statement*: See admitting service's notation. 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
[2020-06-05 08:58] LABS: Basophils % 0.6 %; Eosinophils # 0.3 10^3/uL (0.0-0.8); Eosinophils % 5.1 %; Hematocrit 31.9 % (42.0-52.0); Hemoglobin 10.5 g/dL (11.7-16.6); Lymphocytes % 15.8 %; Mean Corpuscular HGB Conc 32.9 g/dL (30.0-36.0); Mean Corpuscular Hemoglobin 29.9 pg (28.0-34.0); Mean Corpuscular Volume 90.9 fL (80-94); Mean Platelet Volume 9.6 fL (7.4-10.4); Monocytes # 0.6 10^3/uL (0.2-0.9); Monocytes % 8.9 %; Neutrophils # 4.38 10^3/uL (1.8-7.7); Neutrophils % 69.4 %; Nucleated Red Blood Cells % 0 %; Platelet Count 235 10^3/cmm (130-400); Red Blood Count 3.51 10^6/uL (4.1-5.3); Red Cell Distribution Width 12.9 % (12.1-15.1); White Blood Count 6.3 10^3/uL (4.0-10.0)
[2020-06-05 09:10] LABS: Anion Gap 12.3 (5-19); Blood Urea Nitrogen 19 mg/dL (8-23); Calcium 8.7 mg/dL (8.5-10.5); Carbon Dioxide 30 mmol/L (22-29); Chloride 98 mmol/L (98-107); Glucose 180 mg/dL (65-115); Osmolality Calculated 285 mOsm/kg (285-295); Potassium 3.3 mmol/L (3.5-5.1); Sodium 137 mmol/L (136-145)
[2020-06-05] MEDS: potassium chloride ER 10 mEq Tablet 40 MEQ PO (10:47)
--- NOTE | 2020-06-05 11:08 | P.DS_ITS ---
Discharge Providers Date of Admission: 06/03/20 13:53 Date of Discharge: June 05, 2020 Attending Provider at Admission: Boom Deluca MD Attending Provider at Discharge: Boom Deluca MD Primary Care Provider: Mary Samson APN Diagnoses at Discharge Discharge Diagnosis (1) Hematochezia: Status: Acute Reason for Visit Reason for Visit: SYNCOPE/ BLOOD IN STOOL Hospital Course Discharge Summary: Patient presented with syncopal episode and what appears to be upper GI bleed secondary to NSAID induced gastritis patient was hypotensive requiring IV fluids. He was treated with high-dose PPI and gradually improved. Reports that he had no bowel movement since yesterday. Reports that yesterday he had a very minimal amount of blood that he noticed. Reports good oral intake and appetite. His hemoglobin and platelets are stable. Patient was told to discontinue full dose aspirin and in several weeks to discuss with primary care physician to consider 81 mg enteric-coated if his bleeding completely resolved. Patient this morning denies any shortness of breath or chest pain. Denies abdominal pain and wants to go home. I will continue Soma for several more days for as needed use as it appears to be helping him well. Patient to take aspirin for pain control but otherwise addition of [place] could be considered down the road if patient's pain is not improving. We will add lidocaine patch. Physical Exam Const: COMMON NORMALS: no acute distress and patient oriented x3 Resp: COMMON NORMALS: normal respiratory effort and clear to auscultation bilaterally AUSCULTATION: clear to auscultation bilaterally Cardio: COMMON NORMALS: regular rate, regular rhythm and S2 normal heart sound present RATE: regular rate RHYTHM: regular rhythm HEART SOUNDS: S2 normal heart sound present OTHER: No lower extremity edema GI: COMMON NORMALS: Normal to inspection, nondistended, normoactive bowel sounds present, Soft to palpation and non-tender PALPATION: Yes Soft to palpation Neuro: COMMON NORMALS: patient oriented x3 and no focal motor deficits Discharge Data Data Completed and Pending: Completed Studies During Hospitalization Category Date Time Status CT abdomen pelvis w con* [id number] Stat Cat Scan 06/03/20 11:53 Completed XR chest 1V toney ble [id number] Stat Exams 06/03/20 11:24 Completed Pending at discharge Category Date Time Status Leukocyte Reduced RBC Stat Lab 06/03/20 11:59 Results Type and Screen R outine Lab 06/03/20 11:59 Results Labs from last 24 hours 06/05/20 06/05/20 06/05/20 08:17 08:17 06:29 WBC 6.3 RBC 3.51 L Hgb 10.5 L Hct 31.9 L MCV 90.9 MCH 29.9 MCHC 32.9 RDW 12.9 Plt Count 235 MPV 9.6 Neut % (Auto) 69.4 Lymph % (Auto) 15.8 [place] % (Auto) 8.9 Eos % (Auto) 5.1 Baso % (Auto) 0.6 Neut # (Auto) 4.38 Lymph # (Auto) 1.0 [place] # (Auto) 0.6 Eos # (Auto) 0.3 Baso # (Auto) 0.0 Nucleated RBC % (a uto) 0 Nucleated RBCs # 0.0 Sodium 137 Potassium 3.3 L Chloride 98 Carbon Dioxide 30 H Anion Gap 12.3 BUN 19 Creatinine 1.1 GFR Calculation Not Reportable Glucose 180 H POC Glucose 171 Calculated Osmolal ity 285 Calcium 8.7 06/04/20 06/04/20 06/04/20 21:07 16:17 11:34 WBC RBC Hgb Hct MCV MCH MCHC RDW Plt Count MPV Neut % (Auto) Lymph % (Auto) [place] % (Auto) Eos % (Auto) Baso % (Auto) Neut # (Auto) Lymph # (Auto) [place] # (Auto) Eos # (Auto) Baso # (Auto) Nucleated RBC % (a uto) Nucleated RBCs # Sodium Potassium Chloride Carbon Dioxide Anion Gap BUN Creatinine GFR Calculation Glucose POC Glucose 152 190 254 Calculated Osmolal ity Calcium Vitals: Last Vital Signs Temp 97.8 F 06/05/20 07:25 Pulse 67 06/05/20 07:25 Resp 18 06/05/20 07:25 BP 171/92 06/05/20 07:25 Pulse Ox 94 06/05/20 07:25 Discharge Plan Discharge Patient Disposition: Home Condition: Stable Prescriptions: New carisoprodol 350 mg Tablet 350 mg PO BID PRN (Reason: shoulder/neck pain) Qty: 10 RF: 0 acetaminophen 500 mg Tablet 1,000 mg PO Q6H PRN (Reason: Mild Pain Or Increase Temp) Qty: 60 RF: 0 lidocaine 5 % adhesive patch,medicated 1 patch TOPICAL DAILY Qty: 7 RF: 0 Continued hydrochlorothiazide 25 mg tablet 25 mg PO DAILY RF: 0 tamsulosin 0.4 mg capsule 0.4 mg PO DAILY RF: 0 cetirizine [Zyrtec] 10 mg tablet 10 mg PO DAILY RF: 0 glipizide 5 mg tablet 5 mg PO BID RF: 0 potassium chloride 20 mEq tablet extended release 20 meq PO BID RF: 0 metformin 500 mg tablet 1,000 mg PO BID RF: 0 paroxetine HCl 20 mg tablet 20 mg PO BID RF: 0 atorvastatin [Lipitor] 80 mg tablet 80 mg PO EVERY OTHER DAY RF: 0 clonidine HCl 0.1 mg tablet 0.1 mg PO BID PRN (Reason: Blood Pressure) RF: 0 Victoza 2-Riog 0.6 mg/0.1 mL (18 mg/3 mL) pen injector 0.6 mg SUBCUT DAILY RF: 0 omega-3 fatty acids 1,000 mg capsule 2,000 mg PO BID RF: 0 cholecalciferol (vitamin D3) 1,000 unit capsule 1,000 unit PO DAILY RF: 0 carvedilol 12.5 mg tablet 6.25 mg PO BID RF: 0 losartan 100 mg tablet 150 mg PO DIRECTED Qty: 135 RF: 3 Changed pantoprazole [Protonix] 40 mg tablet,delayed release (DR/EC) 40 mg PO BID Qty: 60 RF: 0 Discontinued aspirin 325 mg tablet 325 mg PO DAILY RF: 0 cyclobenzaprine 10 mg Tablet 10 mg PO TID PRN (Reason: Muscle Pain) RF: 0 Discharge Orders: Discharge Order (Routine); Ordered 06/05/20 Ordered By: Boom Deluca Referrals: Mary Samson APN [Primary Care Provider] - 4-7 days Discharge Diet: Advance as tolerated Discharge Activity: Increase activity as tolerated Activity Restrictions/Additional Instructions: Please call your doctor or present to emergency department if your condition worsens or you develop diarrhea, lightheadedness, fatigue or see blood in your stool or black stool. Please do not use aspirin or NSAIDs for now and discuss with your primary care physician in couple of weeks to consider starting 81 mg enteric-coated aspirin if you know more have any evidence of black stool or blood in your stool. Please take Soma as needed instead of cyclobenzaprine for treatment of your shoulder/head and neck pain. Discharge Attestations Time Spent in Discharge Care*: greater than 30 min Quality Metrics Clinical Quality Measures During this hospital stay, did patient experience: None Coding Level of Care Code Acute Supervisor [employer] for [employer] Fwd Exam Detailed Diagnoses Hematochezia K92.1
--- NOTE | 2020-06-05 11:18 | PC.CHAP ---
Pastoral Care Encounter/Spiritual Assessment Type of Contact [] Declined weed cooking operator visit [] Patient/Family/Request visit [] Outpatient visit [X] Follow-up visit [] Physician referral [] Code/Alert [X] Routine visit [] Staff referral [] Actively dying [] Patient sleeping [] Family support [] [] Out of room [] Palliative care [] [] Receiving care in room [] Pre-surgical visit [] Trauma [] Long length of stay [] ICU visit [] Other: Relational/Emotional Strength [] Patient feels connected with others/family/visitors/staff [] Distress [] Loneliness/isolation [] Abandonment Spirituality of Patient [] Person of [place] [] Attends Latter Day of their [place] [] Believes in Prayer [] Reads Bible or Jehovah'S Witness materials [] There are Spiritual issues to be addressed Event Staff Interventions [] Prayer [] Active listening [] Non-anxious presence [] Spiritual/emotional support [] Crisis/trauma care [] Spiritual counseling [] Bereavement support [] Provided bereavement packet [] Provided Bible/devotional materials [] Provided toy/stuffed animal, coloring book to patient or family member [] Provided Communion [] Anointing/[place] [] Salvation [] Completed spiritual assessment [] Other: Impact on Illness or Injury [] Angry [] Fearful [] Anxious [] Often cries [] Exhaustion [] Unable to work [] Unable to attend religious [] Unable to walk/stand [] Unable to read [] Unable to drive [] Unable to eat/drink [] Unable to sleep [] Unable to be with family [] Patient intubated [] Other: Summary: I noticed that pt was out of the ICU, so I stopped in to check on him. He was awaiting discharge. Time spent with patient: < 5 mins
[2020-06-05 11:34] VITALS: BP 152/87; PULSE 64; RESP 18; TEMP 37.1; O2SAT 95
[2020-06-05 12:15] LABS: Glucose Point of Care 234 mg/dL (70-110)
[2020-06-05 12:48] VITALS: BP 152/87; PULSE 64; RESP 18; TEMP 37.1; O2SAT 95
--- NOTE | 2020-06-08 12:40 | PC.SOCIAL ---
ELIZA received from Cover my meds. Initiated request but unlikely to be approved due to pain not being mentioned related to Cancer or Diabetic Neuropathy. Will await determination.
== END 2020-06-05 14:00 | disposition home or self-care (01) | DRG 378 ==
LOC: ER 13:56 → ICU 14:13 → MEDSURG 06-04 11:03
PROVIDERS: Emergency Medicine; Surgery; Admitting Provider Internal Medicine; PCP Nurse Practitioner Family; Visit Provider Internal Medicine
DX: K29.01 Acute gastritis with bleeding (principal); E87.1 Hypo-osmolality and hyponatremia; N17.9 Acute kidney failure, unspecified; T39.315A Adverse effect of propionic acid derivatives, initial encounter; T39.015A Adverse effect of aspirin, initial encounter; R55 Syncope and collapse; K57.90 Diverticulosis of intestine, part unspecified, without perforation or abscess without bleeding; D64.9 Anemia, unspecified; C61 Malignant neoplasm of prostate; E11.22 Type 2 diabetes mellitus with diabetic chronic kidney disease; N18.2 Chronic kidney disease, stage 2 (mild); E78.5 Hyperlipidemia, unspecified; K21.9 Gastro-esophageal reflux disease without esophagitis; Z86.010 Personal history of colon polyps; R91.1 Solitary pulmonary nodule; E86.0 Dehydration; E66.09 Other obesity due to excess calories; Z68.29 Body mass index [BMI] 29.0-29.9, adult; G44.209 Tension-type headache, unspecified, not intractable; Z79.84 Long term (current) use of oral hypoglycemic drugs
CPT/HCPCS: 12345; 36415; 36416; 71045; 74177; 80048; 80053; 82962; 83735; 84484; 85014; 85018; 85025; 85610; 85730; 86850; 86900; 86920; 93005; 96372; 96375; 99283; C9113; J1815; J3475; J7030; Q9967

== ENCOUNTER → 2020-10-25 14:52 | Outpatient (BNVA) | payer MEDICARE, OTHER, SELFPAY | PROVIDERS: PCP Nurse Practitioner Family | DX: E11.69 Type 2 diabetes mellitus with other specified complication (principal); E66.9 Obesity, unspecified; Z12.5 Encounter for screening for malignant neoplasm of prostate | CPT/HCPCS: 80053; 80061; 83036; 85025; G0103 ==